=== PATIENT | female | born 1995 | race Caucasian/White ===

== ENCOUNTER 2022-02-23 09:49 | Emergency (ER) | payer MEDICAID ==
[~2022-02-23] VITALS: Ht 162.6 cm; Wt 113.6 kg
[2022-02-23 10:00] VITALS: BP 150/93
[2022-02-23 10:30] LABS: CLARITY,URINE CLEAR (Clear); COLOR,URINE YELLOW (Yellow); GLUCOSE, URINE NEGATIVE (Neg); KETONES,URINE NEGATIVE (Neg); LEUKOCYTE ESTERASE ,URINE NEGATIVE (Neg); NITRITES, URINE NEGATIVE (Neg); OCCULT BLOOD,URINE NEGATIVE (Neg); PH,URINE 5.5 (4.8-8.0); PROTEIN,URINE NEGATIVE (Neg); UROBILINOGEN,URINE 0.2 E.U/dL (0.2-1.0)
[2022-02-23 10:32] LABS: URINE HCG NEGATIVE (NEG)
[2022-02-23 10:54] LABS: UA COLLECTION TYPE CLN CATCH MIDSTREAM
[2022-02-23] MEDS ORDERED: PHEN-824 PO (11:25)
[2022-02-23] MEDS ORDERED: CEPH-585 PO (11:25)
== END 2022-02-23 12:04 | disposition home or self-care (01) ==
LOC: ER 09:49
DX: N39.0 Urinary tract infection, site not specified (principal); Z87.440 Personal history of urinary (tract) infections; Z79.2 Long term (current) use of antibiotics; Z79.899 Other long term (current) drug therapy; Z98.891 History of uterine scar from previous surgery
CPT/HCPCS: 81003; 81025; 99283

== ENCOUNTER 2025-02-05 03:50 | Emergency (ER) | payer MEDICAID ==
[~2025-02-05] VITALS: Ht 160 cm; Wt 105.5 kg
[~2025-02-05 03:50] MED LIST: PHEN-824 PO
[2025-02-05 03:59] VITALS: BP 131/75; PULSE 102; RESP 16; TEMP 98; O2SAT 98
== END 2025-02-05 06:04 | disposition left against medical advice (07) ==
LOC: ER 03:50
DX: M25.562 Pain in left knee (principal); Z53.21 Procedure and treatment not carried out due to patient leaving prior to being seen by health care provider